=== PATIENT | female | born 1980 | race Caucasian/White ===

== ENCOUNTER 2017-02-21 12:49 | Emergency (ER) | payer OTHER ==
[2017-02-21 12:58] VITALS: BP 122/67
[2017-02-21] MEDS ORDERED: HYDROcod/ACETAM 5/325 MG TABLET PO STA (13:29)
--- NOTE | 2017-02-21 13:31 | ED Physician Documentation ---
PD HPI UPPER EXT INJURY - Stated complaint Stated Complaint: L SHOULDER PAIN - Chief complaint Chief Complaint: Ext Problem - History obtained from History obtained from: Patient - History of Present Illness Location: Other (Without specific injury she has had progressive pain of the tunnel of the left shoulder that is much worse with abduction. She saw her physician for this a few months ago when she was in physical therapy without improvement. It has been much worse due to increased activity over the last week or so.) Review of Systems Constitutional: denies: Fever, Chills Respiratory: denies: Dyspnea, Cough GI: denies: Abdominal Pain, Nausea, Vomiting PD PAST MEDICAL HISTORY - Past Surgical History Past Surgical History: No - Present Medications Home Medications: Ambulatory Orders Medication Instructions Recorded Confirmed HYDROcod/ACETAM 5/325 [[place] 5/325] 1 - 2 ea PO Q6H PRN #15 tablet 02/21/17 - Allergies Allergies/Adverse Reactions: Allergies Allergy/AdvReac Type Severity Reaction Status Date / Time erythromycin base AdvReac Cramps Verified 02/21/17 12:57 - Social History Does the pt smoke?: No Smoking Status: Never smoker Does the pt drink ETOH?: Yes Does the pt have substance abuse?: No - Immunizations Immunizations are current?: Yes PD ED PE NORMAL - Vitals Vital signs reviewed: Yes - General General: Alert and oriented X 3, No acute distress - Neck Neck: Supple, no meningeal sign, No bony TTP - Extremities Extremities: Other (Left shoulder is mildly tender over the musculature on top and of the superior part of the glenohumeral joint. She is only able to abduct to 90 and has positive supraspinatus testing but pretty normal internal and external rotation.) - Neuro Neuro: Alert and oriented X 3, Normal speech - Psych Psych: Normal mood, Normal affect Results - Vitals Vitals: Vital Signs - 24 hr 02/21/17 12:55 Temperature 36.4 C L Heart Rate 69 Respiratory 14 Rate Blood Pressure 122/67 O2 Saturation 100 Oxygen O2 Source Room air PD MEDICAL DECISION MAKING - ED course ED course: We discussed doing x-rays today, she declined, after discussion she probably needs advanced imaging at this juncture and [place]. She also declined a sling. She really just wanted something stronger than Motrin for the pain for the next few days. Departure - Departure Disposition: Home, Self Care Clinical Impression: Shoulder pain, left Qualifiers: Chronicity: chronic Qualified Code(s): M25.512 - Pain in left shoulder Condition: Good Record reviewed to determine appropriate education?: Yes Instructions: ED Torn Rotator Cuff Prescriptions: HYDROcod/ACETAM 5/325 [[place] 5/325] 1 - 2 ea PO Q6H PRN #15 tablet PRN Reason: Pain Comments: [place]. Return if worse. Do not drink or drive while taking narcotic pain medication. Note that many narcotic pain relievers also contain Tylenol/acetaminophen. Please ensure that your total dose of acetaminophen from all sources does not exceed 3 g (3000 mg) per day. You may get constipated while on this medication. Take a stool softener such as Colace twice a day while you are on it. Also add an [id number] laxative such as senna or MiraLAX on any day that you do not have a bowel movement. If you received a narcotic pain medication or sedative while in the emergency department, do not drive for the next 24 hours.
[2017-02-21] MEDS ORDERED: HYDROcod/ACETAM 5/325 MG TABLET ONE (13:37)
== END 2017-02-21 13:38 | disposition home or self-care (01) ==
LOC: ED 12:49
DX: M25.512 Pain in left shoulder (principal)
CPT/HCPCS: 99283; A9270

== ENCOUNTER 2020-05-17 20:25 | Emergency (ER) | payer OTHER ==
--- NOTE | 2020-05-17 21:22 | ED Physician Documentation ---
PD HPI UPPER EXT INJURY - Stated complaint Stated Complaint: DOG BITE/LT HAND - Chief complaint Chief Complaint: Wound - History obtained from History obtained from: Patient - History of Present Illness Location: Left, Hand Type of injury: Other (bite from her dog) Where injury occurred: Home Timing - onset: Today Timing - duration: Minutes Timing - details: Abrupt onset, Still present Improved by: Rest, Immobilization Worsened by: Moving, Palpating Associated symptoms: No: Weakness, Numbness, Tingling, Swelling Contributing factors: No: Anticoagulated Similar symptoms before: Has not had sx before Recently seen: Not recently seen - Additonal information Additional information: 39 y/o female previously well was with her 14 y/o pit bull who is recently on a new pain medication when she went to grab his ball he bit her hand. She has never been bit previously and she has pain to the hand over the dorsum of the left thumb and 5th digit. She is up to date on her tetanus and she is only allergic to erythromycin. Review of Systems Constitutional: denies: Fever Respiratory: denies: Cough GI: denies: Vomiting, Diarrhea PD PAST MEDICAL HISTORY - Past Medical History Past Medical History: Yes Musculoskeletal: Osteoarthritis - Past Surgical History Past Surgical History: No - Present Medications Home Medications: Ambulatory Orders Medication Instructions Recorded Confirmed Amox/Clav 875/125 [Augmentin] 1 each PO Q12H #10 tablet 05/17/20 - Allergies Allergies/Adverse Reactions: Allergies Allergy/AdvReac Type Severity Reaction Status Date / Time erythromycin base AdvReac Cramps Verified 02/21/17 12:57 - Social History Does the pt smoke?: No Smoking Status: Never smoker Does the pt drink ETOH?: Yes Does the pt have substance abuse?: No - Immunizations Immunizations are current?: Yes - POLST Patient has POLST: No PD ED PE NORMAL - Vitals Vital signs reviewed: Yes (hypertensive) - General General: Alert and oriented X 3, Well developed/nourished, Other (appears emotionally spent) - HEENT HEENT: Atraumatic, PERRL, EOMI - Respiratory Respiratory: No respiratory distress - Derm Derm: Normal color, Warm and dry, No rash - Extremities Extremities: No deformity, Other (There are puncture garvin to the left thumb over the dorsum of the 1st metacarpal and the 1st proximal phlange. distal n/v intact. There is bruising and abrasion to the left 5th digit dorsal lateral MC. ) - Neuro Neuro: Alert and oriented X 3, air analyst 2-12 intact, No motor deficit, No sensory deficit, Normal speech Eye Opening: Spontaneous Motor: Obeys Commands Verbal: Oriented GCS Score: 15 - Psych Psych: Normal mood, Normal affect Results - Vitals Vitals: Vital Signs - 24 hr 05/17/20 05/17/20 20:38 20:43 Temperature 36.9 C 36.9 C Heart Rate 100 100 Respiratory 22 21 Rate Blood Pressure 149/100 H 149/99 H O2 Saturation 99 100 Oxygen O2 Source Room air - Rads (name of study) chest Radiology: Prelim report reviewed (Impression: No fracture or foreign body seen.), EMP read indepedently, See rad report PD MEDICAL DECISION MAKING - ED course Complexity details: considered differential, d/w patient ED course: 39-year-old female with a dog bite to the nondominant hand has puncture garvin to the thumb and abrasion to the fifth and her wounds are cleansed and she is up-to-date on her tetanus. Her wounds are dressed and we will place her on prophylactic Augmentin. Departure - Departure Disposition: 01 Home, Self Care Clinical Impression: Dog bite of left hand Qualifiers: Encounter type: initial encounter Qualified Code(s): S61.452A - Open bite of left hand, initial encounter Condition: Stable Instructions: ED Bite Dog Follow-Up: LAURYN SALDANA [Primary Care Provider] - Prescriptions: Amox/Clav 875/125 [Augmentin] 1 each PO Q12H #10 tablet
--- NOTE | 2020-05-17 21:36 | XRAY Report ---
PROCEDURE: Hand 3 View LT INDICATIONS: dog bite thumb. TECHNIQUE: 3 views of the hand(s) acquired. COMPARISON: None FINDINGS: Bones: No fractures or dislocations. No suspicious bony lesions. Soft tissues: No suspicious soft tissue calcifications. IMPRESSION: No fracture or foreign body seen. Reviewed by: Oscar Urena MD on 05/17/2020 9:34 PM PST Approved by: Oscar Urena MD on 05/17/2020 9:34 PM [facility] Station ID: [id number]
[2020-05-17] MEDS ORDERED: AMOX/CLAV 875 MG/125 MG TABLET PO STA (21:40)
[2020-05-17 21:50] VITALS: BP 130/78
== END 2020-05-17 21:49 | disposition home or self-care (01) ==
LOC: ED 20:25
DX: S61.052A Open bite of left thumb without damage to nail, initial encounter (principal); S60.477A Other superficial bite of left little finger, initial encounter; W54.0XXA Bitten by dog, initial encounter; Y93.89 Activity, other specified; Y92.009 Unspecified place in unspecified non-institutional (private) residence as the place of occurrence of the external cause; Z88.1 Allergy status to other antibiotic agents
CPT/HCPCS: 73130; 99283; 99284; A9270

== ENCOUNTER 2021-06-24 08:00 | Outpatient (CLI) | payer OTHER | END 2021-06-24 23:59 | LOC: LAB.N 08:00 | PROVIDERS: ATTEND Family Medicine | DX: R05.9 Cough, unspecified (principal); R53.83 Other fatigue; R53.81 Other malaise; Z20.822 Contact with and (suspected) exposure to COVID-19 | CPT/HCPCS: 87275; 87276 ==